=== PATIENT | female | born 1985 | race Caucasian/White ===

== ENCOUNTER 2018-03-22 01:34 | Emergency (ER) | payer OTHER ==
[~2018-03-22] VITALS: Ht 154.9 cm; Wt 61.2 kg
[2018-03-22 02:12] VITALS: BP 148/76
--- NOTE | 2018-03-22 02:23 | NUR ---
Aurbey stein in ED - 03/22/18 at 0224 by SARAH PT LEFT WITHOUT RX PAPER, STATES "I'M NOT TAKING THAT". Patient discharged to home in stable condition. Written and verbal after care instructions given. Patient verbalizes understanding of instruction. Pt ambulatory with a steady gait
--- NOTE | 2018-03-22 02:25 | NUR ---
PT LEFT WITHOUT RX PAPER, STATES "I'M NOT TAKING THAT, IT WON'T HELP ME". Patient discharged to home in stable condition. Written and verbal after care instructions given. Patient verbalizes understanding of instruction. Pt ambulatory with a steady gait
== END 2018-03-22 02:28 | disposition home or self-care (01) ==
LOC: ER 01:39
DX: S39.011A Strain of muscle, fascia and tendon of abdomen, initial encounter (principal); J45.909 Unspecified asthma, uncomplicated; K21.9 Gastro-esophageal reflux disease without esophagitis; D17.23 Benign lipomatous neoplasm of skin and subcutaneous tissue of right leg; Z98.890 Other specified postprocedural states; W22.8XXA Striking against or struck by other objects, initial encounter; Y93.89 Activity, other specified; Y92.89 Other specified places as the place of occurrence of the external cause; Y99.8 Other external cause status
CPT/HCPCS: 99282; A4606; Z7610

== ENCOUNTER 2018-12-14 16:41 | Emergency (ER) | payer MEDICAID, OTHER ==
[~2018-12-14] VITALS: Ht 154.9 cm; Wt 61.2 kg
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
--- NOTE | 2018-12-14 16:50 | NUR ---
IV LINE ESTABLISHED.
--- NOTE | 2018-12-14 16:57 | NUR ---
AT BEDSIDE FOR EVAL.
[2018-12-14] MEDS ORDERED: MORPHINE SULFATE INJ 2 MG/ML DISP.SYRIN ONE (17:12)
[2018-12-14] MEDS ORDERED: ONDANSETRON HCL/PF 4 MG/2 ML VIAL ONE (17:12)
[2018-12-14] MEDS ORDERED: TDAP [DIPH/PERTUSSIS/TET] 0.5 ML VIAL IM ONE ×2 (17:13→17:30)
[2018-12-14] MEDS ORDERED: MORPHINE SULFATE INJ 2 MG/ML DISP.SYRIN IV ONE (17:30)
[2018-12-14] MEDS ORDERED: ONDANSETRON HCL/PF - ER 4 MG/2 ML VIAL IV ONE (17:30)
--- NOTE | 2018-12-14 17:35 | NUR ---
[facility] AT BEDSIDE FOR XRAY.
[2018-12-14] MEDS ORDERED: BACI/NEOM/POLY B OINT PKT 1 UDPKT PACKET TP ONE (18:30)
--- NOTE | 2018-12-14 18:36 | NUR ---
IV removed. Catheter intact and site benign. Pressure and 4x4 applied to site. No bleeding noted. Patient discharged to home in stable condition. Written and verbal after care instructions given. Patient verbalizes understanding of instruction.
[2018-12-14 18:37] VITALS: BP 131/67
== END 2018-12-14 18:47 | disposition home or self-care (01) ==
LOC: ER 16:42
DX: S50.312A Abrasion of left elbow, initial encounter (principal); M25.561 Pain in right knee; K21.9 Gastro-esophageal reflux disease without esophagitis; J45.909 Unspecified asthma, uncomplicated; Z90.89 Acquired absence of other organs; Z98.890 Other specified postprocedural states; Z60.2 Problems related to living alone; W05.1XXA Fall from non-moving nonmotorized scooter, initial encounter; Y93.55 Activity, bike riding; Y92.89 Other specified places as the place of occurrence of the external cause; Y99.8 Other external cause status
CPT/HCPCS: 73080; 73564; 90471; 90715; 96374; 96375; 99283; A6403; J2270; J2405

== ENCOUNTER 2020-12-29 02:52 | Emergency (ER) | payer MEDICAID, OTHER ==
[~2020-12-29] VITALS: Ht 154.9 cm; Wt 53.1 kg
--- NOTE | 2020-12-29 03:10 | NUR ---
KARIE FROM HOME TO ER BED 5. AAOX4. SOB BUT TALKING IN FULL SENTENCES. BROUGHT ON FOR SOB, RAN OUT OF INHALER FOR THE PAST 2 DAYS. PT IS RECEIVING BREATHING TX UPON ARRIVAL WHICH WAS INITIATED BY EMS. PT IS SATTING 96%. WAS AT THE BEDSIDE FOR EVAL.
[2020-12-29] MEDS ORDERED: IPRATROPIUM NEB FS 0.5 MG/2.5 ML AMPUL.NEB ONE (03:17)
[2020-12-29] MEDS ORDERED: ALBUTEROL FS 2.5 MG/3 ML VIAL.NEB ONE (03:17)
[2020-12-29] MEDS ORDERED: ALBUTEROL FS 2.5 MG/3 ML VIAL.NEB CONTNEB ONE (03:30)
[2020-12-29] MEDS ORDERED: IPRATROPIUM NEB FS 0.5 MG/2.5 ML AMPUL.NEB NEB ONE (03:30)
[2020-12-29] MEDS ORDERED: methylPREDNISolone SOD SUCC 125 MG/2ML VIAL IM ONE (03:30)
[2020-12-29] MEDS ORDERED: ALBU8.5H8 INH (04:11)
[2020-12-29] MEDS ORDERED: PRED20TA PO (04:11)
--- NOTE | 2020-12-29 04:39 | NUR ---
Patient discharged to home in stable condition. Written and verbal after care instructions given. Patient verbalizes understanding of instruction. Pt ambulatory with a steady gait. Pt picked up by the partner
[2020-12-29 04:40] VITALS: BP 136/85
== END 2020-12-29 04:42 | disposition home or self-care (01) ==
LOC: ER 02:54
DX: O99.511 Diseases of the respiratory system complicating pregnancy, first trimester (principal); J45.901 Unspecified asthma with (acute) exacerbation; Z3A.08 8 weeks gestation of pregnancy

== ENCOUNTER 2023-11-13 08:26 | Emergency (ER) | payer MEDICAID, OTHER ==
[~2023-11-13] VITALS: Ht 154.9 cm; Wt 54.4 kg
[~2023-11-13 08:26] MED LIST: ALBU8.5H8 INH; PRED20TA PO
[2023-11-13] MEDS ORDERED: predniSONE 50 MG TABLET PO ONE (08:30)
[2023-11-13] MEDS ORDERED: predniSONE 20 MG TABLET ONE (08:35)
[2023-11-13] MEDS ORDERED: methylPREDNISolone SOD SUCC 125 MG/2ML VIAL ONE (08:37)
[2023-11-13] MEDS ORDERED: Magnesium 1GM/D5W 100ML PREMIX 200 ML IV ONE (08:37)
[2023-11-13] MEDS: IV NS 0.9% 1,000 ML BAG IV ONE (08:42)
[2023-11-13] MEDS: methylPREDNISolone SOD SUCC 125 MG/2ML VIAL IV ONE (08:42)
[2023-11-13] MEDS: Magnesium 1GM/D5W 100ML PREMIX 200 ML IV ONE (08:43)
[2023-11-13] MEDS ORDERED: ALBUTEROL FS 2.5 MG/3 ML VIAL.NEB ONE (08:43)
[2023-11-13] MEDS ORDERED: IPRATROPIUM NEB FS 0.5 MG/2.5 ML AMPUL.NEB ONE ×2 (08:43→08:57)
[2023-11-13] MEDS: ALBUTEROL FS 2.5 MG/3 ML VIAL.NEB NEB ONE (08:46)
[2023-11-13] MEDS: IPRATROPIUM NEB FS 0.5 MG/2.5 ML AMPUL.NEB NEB ONE (08:46)
[2023-11-13 09:00] VITALS: O2SAT 100
[2023-11-13 09:50] VITALS: O2SAT 99
[2023-11-13] MEDS ORDERED: PRED20TA PO (10:42)
[2023-11-13] MEDS ORDERED: ALBU18HF2 IH (10:42)
[2023-11-13] MEDS ORDERED: AZIT250T13 PO (10:42)
[2023-11-13 11:30] VITALS: BP 131/84; TEMP 97.8; O2SAT 100
== END 2023-11-13 11:30 | disposition home or self-care (01) ==
LOC: ER 08:36
DX: J45.901 Unspecified asthma with (acute) exacerbation (principal)
CPT/HCPCS: 99285; 96365; 71045; 96366; 96375; 94640; J7512; J2919; J7030; J3475; A4223